=== PATIENT | male | born 1950 | race Caucasian/White ===

== ENCOUNTER 2023-04-09 08:43 | Emergency (ER) | payer OTHER ==
[~2023-04-09] VITALS: Ht 175.3 cm; Wt 86.2 kg
[2023-04-09 09:00] VITALS: BP_SYST 148; PULSE 69; RESP 17; TEMP 98.8; O2SAT 95
[2023-04-09] MEDS ORDERED: KETOROLAC TROMETHAMINE 30 MG VIAL IM ONE (11:30)
[2023-04-09] MEDS ORDERED: TRAM50TA2 PO (12:06)
[2023-04-09 12:31] VITALS: BP_SYST 148; PULSE 69; RESP 17; TEMP 98.8; O2SAT 95
== END 2023-04-09 12:25 | disposition home or self-care (01) ==
LOC: SED 08:43
DX: M25.552 Pain in left hip (principal); R20.2 Paresthesia of skin; Z79.899 Other long term (current) drug therapy
CPT/HCPCS: 99283; 73502; 96372; J1885